=== PATIENT | male | born 1960 | race African-American/Black ===

== ENCOUNTER → 2020-08-15 | Day surgery (SDC) | payer OTHER ==
[~2020-08-15] MED LIST: COZAAR100 MG PO; LOVAZA1 GM PO; NORVASC5 MG PO; PERCOCET 5-3251 EACH PO
[2020-08-15 12:00] LABS: BASOPHIL 0.2 % (0-2); EOSINOPHIL 0.7 % (0-5); HCT 44.2 % (42.0-52.0); HGB 14.8 g/dl (13.2-18.0); LYMPHOCYTE 40.4 % (15-48); MCH 31.5 pg (25.0-31.0); MCHC 33.5 g/dL (32.0-36.0); MPV 10.2 fL (6.0-9.5); NEUTROPHIL 49.5 % (41-80); NRBC 0; PLT 188 K/uL (150-400); RDW 11.7 % (11.5-14.0)
== END | disposition home or self-care (01) ==
LOC: FAS 10:50
PROVIDERS: Oral & Maxillofacial Surgery
DX: K02.9 Dental caries, unspecified (principal); K04.7 Periapical abscess without sinus; I10 Essential (primary) hypertension; Z79.899 Other long term (current) drug therapy
CPT/HCPCS: D7210; 36415; 71045; 85025; 93005; J1100; J1170; J2250; J2405; J2704; J3010; J7120